=== PATIENT | male | born 1945 | race Caucasian/White ===

== ENCOUNTER 2017-02-10 12:46 | Outpatient (CLI) | payer MEDICARE ==
--- NOTE | 2017-02-10 18:15 | RAD ---
TWO VIEW CHEST: History: Dyspnea. FINDINGS: There is blunting of both CP angles and posterior gutters consistent with small bilateral effusions. Lungs otherwise appear clear and well aerated. Heart size is within normal range. Post op sternotomy changes noted. Vascular markings are within normal range. IMPRESSION: Evidence of small bilateral effusions. POS: [facility]
== END 2017-02-10 12:47 | disposition home or self-care (01) ==
LOC: RAD 12:46
PROVIDERS: ATTEND Internal Medicine
DX: R06.00 Dyspnea, unspecified (principal); J90 Pleural effusion, not elsewhere classified
CPT/HCPCS: 71020

== ENCOUNTER 2017-08-15 14:34 | Outpatient (CLI) | payer MEDICARE ==
--- NOTE | 2017-08-15 16:18 | MRI ---
MRI THORACIC SPINE PERFORMED WITHOUT CONTRAST ENHANCEMENT: Date: 08/15/17 HISTORY: Back pain with pain between shoulder blades x2 months, radicular-type symptoms. FINDINGS: The vertebral bodies are normal in height. There is no evidence for any acute marrow edema change sug gesting any type of a compression injury. Disc spaces are also relatively well preserved. There is fa irly minimal arthritic change seen. Review of the disc levels show minimal disc bulges, but no signs of disc herniation. There is no cent ral canal stenosis and the cord signal change is normal. No paravertebral abnormalities noted. T2 hyperintense lesion involving the upper pole of the right ki dney is most likely a cyst and is only partially visualized. IMPRESSION: Essentially unremarkable MRI of the thoracic spine. POS: [facility]
== END 2017-08-15 14:35 | disposition home or self-care (01) ==
LOC: TBSIIMAG 14:34
PROVIDERS: ATTEND Specialist
DX: M54.14 Radiculopathy, thoracic region (principal)
CPT/HCPCS: 72146

== ENCOUNTER 2017-09-15 10:03 | Outpatient (CLI) | payer MEDICARE ==
--- NOTE | 2017-09-15 11:25 | RAD ---
LUMBAR SPINE THREE VIEWS: Technique: Lateral views were obtained in neutral flexion and extension positions. Indications: Spondylosis. Back pain. FINDINGS: Lumbar vertebrae maintain height. Slight retrolisthesis seen at L1-2 and L2-3. Mild anterolisthesis a t L5-S1. Loss of disc space throughout but most prominent at L1-2, L2-3, and L5-S1 levels. Mild to mo derate degenerative spurring. Prominent facet hypertrophy. No significant change in alignment with flexion or extension. Aortic stent graft is noted. IMPRESSION: Grade I anterolisthesis at L5-S1 and slight posterior listhesis at 1- and L2-3. Degenerative changes as described. POS: [facility]
== END 2017-09-15 10:04 | disposition home or self-care (01) ==
LOC: RAD 10:03
PROVIDERS: ATTEND Nurse Practitioner Family
DX: M47.816 Spondylosis without myelopathy or radiculopathy, lumbar region (principal); M43.17 Spondylolisthesis, lumbosacral region
CPT/HCPCS: 72100

== ENCOUNTER 2017-09-24 10:06 | Outpatient (CLI) | payer MEDICARE ==
--- NOTE | 2017-09-24 11:53 | RAD ---
LUMBAR SPINE FOUR VIEWS INCLUDING STANDING AND FLEXION WITH EXTENSION LATERAL VIEWS: HISTORY: A 72-year-old male with spondylosis in the lumbar region. COMPARISON: 09/15/2017 FINDINGS: Aortobiiliac Endo stent is in place. Generalized disk osteophytosis and facet arthrosis. No evidenc e for abnormal translation between flexion and extension. No acute fracture. IMPRESSION: Lumbar spondylosis. No abnormal translation between flexion and extension. Stable from prior study. POS: [facility]
== END 2017-09-24 10:07 | disposition home or self-care (01) ==
LOC: RAD 10:06
PROVIDERS: ATTEND Specialist
DX: M47.816 Spondylosis without myelopathy or radiculopathy, lumbar region (principal)
CPT/HCPCS: 72120

== ENCOUNTER 2017-10-03 15:20 | Outpatient (CLI) | payer MEDICARE | END 2017-10-03 15:21 | disposition home or self-care (01) | LOC: BICMRI 15:20 | PROVIDERS: ATTEND Family Medicine | DX: H53.2 Diplopia (principal); I63.9 Cerebral infarction, unspecified | CPT/HCPCS: 70551 ==

== ENCOUNTER 2019-01-14 13:27 | Outpatient (CLI) | payer MEDICARE ==
--- NOTE | 2019-01-14 14:46 | CT ---
CT CHEST NONCONTRAST: HISTORY: Lung nodule. Followup. COMPARISON: Images from a prior outside CT exam 08/11/2018 are included. Report not available. FINDINGS: Lungs are hyperinflated. Postoperative changes at the superior aspect of the right major fissure wit h radiopaque suture row extending to the right hilum. Scattered areas of parenchymal scarring. Mild bibasilar atelectasis. Centered within the posterior aspect of the left upper lobe is a lobular multinodular focus with subt le surrounding spiculation. Its greater diameter, 0.9 cm, is an AP depth, unchanged from the prior e xam. No new masses are apparent. No pleural fluid or pneumothorax. Airways are patent. Lack of contrast limits evaluation of the soft tissues. Postoperative changes mediastinum. Calcific ation within the arterial structures. No enlarged mediastinal lymph nodes are apparent. Tiny low-de nsity lesion of the right adrenal gland is stable. IMPRESSION: 1. Postoperative changes of the right lung. The very small soft tissue ground-glass nodule at the p osterior aspect of the left upper lobe is stable. No new abnormalities. 2. Atherosclerosis. 3. Chronic-type findings are stable. POS: [facility]
== END 2019-01-14 13:28 | disposition home or self-care (01) ==
LOC: BICCT 13:27
PROVIDERS: ATTEND Internal Medicine
DX: R91.8 Other nonspecific abnormal finding of lung field (principal); I70.90 Unspecified atherosclerosis; Z98.890 Other specified postprocedural states; E27.8 Other specified disorders of adrenal gland
CPT/HCPCS: 71250

== ENCOUNTER 2019-03-29 12:17 | Outpatient (CLI) | payer MEDICARE ==
--- NOTE | 2019-03-29 15:17 | RAD ---
RADIOGRAPH RIGHT HIP 2 VIEWS: Date: 03/29/2019 HISTORY: 74-year-old male with persistent posttraumatic right hip pain after fall 2 days ago. FINDINGS: Femoral head contour is maintained. No fracture is identified. No dislocation. Hip joint space is estrada ntained. No subcapital osteophytes. IMPRESSION: 1. Negative. 2. If symptoms do not improve by next week, a noncontrast MRI of the pelvis and hip would be the mos t sensitive modality for the detection of occult acute hip fractures. POS: [facility]
== END 2019-03-29 12:18 | disposition home or self-care (01) ==
LOC: BICRAD 12:17
PROVIDERS: ATTEND Nurse Practitioner Family
DX: M25.551 Pain in right hip (principal)

== ENCOUNTER 2019-04-27 14:10 | Outpatient (CLI) | payer MEDICARE, OTHER ==
[2019-04-27] MEDS ORDERED: Magnevist 469MG/ML 20 ML VIAL ONE (14:22)
--- NOTE | 2019-04-27 15:38 | MRI ---
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 Short-term memory loss, past few months. COMPARISON: None. FINDINGS: Gradient echo sequence: No hemorrhage. Calvarium: Appropriate T1 marrow signal intensity. Midline brain parenchyma: Unremarkable. Cerebrum:Stable malacic and gliotic changes involving the medial right frontal lobe. Associated T2 an d FLAIR white matter hyperintensities. No parenchymal mass, mass effect or midline shift. Brain volume, age-appropriate. With the exception of the medial right frontal lobe, cortical alfaro-white mat ter differentiation is preserved. There are T2 and FLAIR white matter hyperintensities involving the anterior right webster radiata, right centrum semiovale due to a combination of gliosis and chroni c small vessel ischemic changes. Small cavitary lacunar infarct in the right centrum semiovale is noted. Ventricles: No evidence of hydrocephalus. Sinuses and mastoid air cells: Adequate aeration. Diffusion: Central arterial flow is maintained. Absent restricted diffusion. Postcontrast images: No pathologic enhancement of the brain parenchyma. IMPRESSION: 1. Malacic and gliotic changes involving the right frontal white matter and right frontal lobe due re mote insult. 2. Absent restricted diffusion. No acute infarct. 3. No pathologic enhancement of the brain parenchyma. 4. Age-appropriate atrophy. Transcribed Date/Time: 04/27/2019 3:42 PM
== END 2019-04-27 14:11 | disposition home or self-care (01) ==
LOC: BICMRI 14:10
PROVIDERS: ATTEND Psychiatry & Neurology Neurology
DX: I66.01 Occlusion and stenosis of right middle cerebral artery (principal); G93.89 Other specified disorders of brain
CPT/HCPCS: 70553; 82565; A9579

== ENCOUNTER 2019-06-19 17:00 | Inpatient (IN) | payer MEDICARE ==
[~2019-06-19 17:00] MED LIST: Iopamidol 370 76% 50 ML VIAL FS ONE
[2019-06-19 17:53] LABS: #Basophils 0.1 thou/uL (0.0-0.2); #Eosinphils 0.1 thou/uL (0.0-0.7); #Lymphocytes 2.4 thou/uL (1.20-3.40); #Monocytes 0.9 thou/uL (0.11-0.59); #Neutrophils 13.4 thou/uL (1.40-6.50); %Basophils 0.4 % (0.0-1.0); %Eosinophils 0.6 % (0.0-10.0); %Lymphocytes 14.2 % (21.0-51.0); %Monocytes 5.5 % (0.0-10.0); %Neutrophils 79.3 % (42.0-75.0); Hemoglobin 12.2 g/dL (14.0-18.0); Mean Corpuscular HGB CONC 34.3 g/dL (32.0-36.0); Mean Corpuscular Hemoglobin 31.1 pg (27.0-31.0); Mean Corpuscular Volume 90.8 fL (78.0-98.0); Mean Platelet Volume 9.4 fL (7.4-10.4); Platelet Count 235 thou/uL (130-400); RBC Distribution Width 13.2 % (11.5-14.5); White Blood Cell (WBC) Count 16.9 thou/uL (4.8-10.8)
[2019-06-19] MEDS ORDERED: Pantoprazole 40 MG VIAL ONE (17:54)
[2019-06-19 17:59] LABS: PTT 32.1 SEC (22.9-36.1); Prothrombin Time 13.1 SEC (12.0-14.7)
[2019-06-19] MEDS ORDERED: Pantoprazole 80 MG in Sodium Chloride 0.9% 100 ML IVPB SCH (18:00)
[2019-06-19 18:04] LABS: ALT (SGPT) 11 U/L (8-55); AST (SGOT) 9 U/L (5-34); Alkaline Phosphatase 67 U/L (40-110); Anion Gap 15 mmol/L (10-20); BUN (Urea Nitrogen) 62 mg/dL (8.4-25.7); Bilirubin, Total 0.6 mg/dL (0.2-1.2); Calc. Creatinine Clearance 0 mL/min (70-130); Calcium 9.6 mg/dL (7.8-10.44); Carbon Dioxide 24 mmol/L (23-31); Chloride 105 mmol/L (98-107); Estimated GFR-MDRD 58; Globulin 2.4 g/dL (2.4-3.5); Glucose 92 mg/dL (83-110); Potassium 4.8 mmol/L (3.5-5.1); Protein, Total 6.4 g/dL (5.8-8.1); Sodium 139 mmol/L (136-145)
--- NOTE | 2019-06-19 19:04 | CT ---
CT ABDOMEN AND PELVIS PERFORMED WITH INTRAVENOUS CONTRAST ENHANCEMENT: 06/19/19 HISTORY: Blood in stools. Abdominal pain in left upper quadrant that has resolved. COMPARISON: An 01/22/19 CT angio of the abdomen and pelvis. The lung bases show chronic appearing change. The liver, spleen, pancreas and gallbladder regions appear unremarkable. Right and left adrenal glands and right and left kidneys are normal in size. Hypodensities involving the right kidney are most likely cysts. Some perinephric fat stranding is of similar appearance to th e previous exam. Fairly extensive renal artery calcifications are seen, particularly on the right. Th e infrarenal abdominal aortic aneurysm is again noted. It has been treated with an aortoiliac stent, the appearance is stable as compared to the previous exam. No signs for an endoleak. The maximum AP d imension of the aneurysm is 4.5 cm. There is colonic diverticulosis noted, more pronounced in the sig moid region. No inflammatory process. The appendix appears unremarkable. IMPRESSION: 1. Colonic diverticulosis. 2. Stable appearance to aortic aneurysm and aortoiliac stent. 3. Hypodensities involving the kidney are most compatible with a cyst. Also a small adenoma of t he right adrenal gland is stable. POS: [facility]
[2019-06-19] MEDS ORDERED: Lorazepam 2 MG/ML VIAL SLOW IVP PRN (19:56)
[2019-06-19] MEDS ORDERED: Sodium Chloride 0.9% 1,000 ML IV SCH (20:00)
[2019-06-19] MEDS ORDERED: Dextrose 5 %-0.45 % NaCl 1,000 ML IV SCH (20:00)
--- NOTE | 2019-06-19 20:11 | HP ---
CHIEF COMPLAINT: Black stools. HISTORY OF PRESENT ILLNESS: Mr. Madrid is a 74-year-old male with past medical history of coronary artery disease, multiple TIAs, cardiac stents, CABG, lung cancer, presented to the emergency room with chief complaint of melena. He is normally constipated, and this morning began having dark black stool and had 4 bowel movements a day, after that he started feeling weak and lightheaded, especially with standing. The patient denies any history of GI bleeding. He had some left upper quadrant abdominal pain. The patient is on Plavix and aspirin. He denies being on any anticoagulants. PAST MEDICAL HISTORY: As mentioned above in history of present illness. PAST SURGICAL HISTORY: 1. CABG. 2. Cardiac stents. PAST PSYCHIATRIC HISTORY: PTSD. SOCIAL HISTORY: The patient currently uses tobacco. Denies drug use. Denies alcohol use. FAMILY HISTORY: Reviewed and noncontributory. HOME MEDICATIONS: Please see home medication reconciliation form for updated medications. ALLERGIES: NO KNOWN ALLERGIES. REVIEW OF SYSTEMS: Review of 14 systems is negative except what is mentioned in the history of present illness. PHYSICAL EXAMINATION: GENERAL: The patient is awake, alert, and oriented, not in acute distress. VITAL SIGNS: Blood pressure 124/69, pulse is 79, respiratory rate is 16, temperature is 99.6, and oxygen saturation 99% on room air. HEAD AND NECK: Normocephalic and atraumatic. Neck is supple. No JVD. CHEST: Fair bilateral air entry. HEART: S1 and S2. Regular. ABDOMEN: Soft with mild left upper quadrant tenderness. Bowel sounds present. NEUROLOGIC: Awake, alert, and oriented x3. PSYCHIATRIC: Unable to assess. EXTREMITIES: No clubbing. No cyanosis. GENITOURINARY: No suprapubic tenderness. No flank tenderness. LABORATORY DATA: Hemoglobin is 12.2, platelets 235, and WBC count is 16.9. BUN is 62 and creatinine 1.2. ASSESSMENT: 1. Acute gastrointestinal bleeding, upper. 2. Coronary artery disease with history of coronary artery bypass graft surgery and cardiac stents, on Plavix and aspirin. 3. Cigarette smoker. 4. Posttraumatic stress disorder. PLAN: 1. Admit. 2. Monitor hemoglobin and hematocrit. 3. Continue IV proton pump inhibitor drip. 4. Hold aspirin and Plavix. 5. Consult GI for evaluation and further management. 6. The patient has elevated WBC count, but no obvious signs of infection, probably reactive. We will reassess in a.m. 7. DVT prophylaxis as appropriate. 8. Expected length of stay, 2 midnights or more. Job ID: [id number]
[2019-06-19 22:16] LABS: Hemoglobin 10.7 g/dL (14.0-18.0)
[2019-06-19 23:27] VITALS: BMI 33.2
[2019-06-20 06:48] LABS: #Eosinphils 0.1 thou/uL (0.0-0.7); #Monocytes 0.8 thou/uL (0.11-0.59); #Neutrophils 9.2 thou/uL (1.40-6.50); %Basophils 0.2 % (0.0-1.0); %Eosinophils 0.9 % (0.0-10.0); %Lymphocytes 22.6 % (21.0-51.0); %Monocytes 5.9 % (0.0-10.0); %Neutrophils 70.4 % (42.0-75.0); Hemoglobin 8.9 g/dL (14.0-18.0); Mean Corpuscular HGB CONC 34.2 g/dL (32.0-36.0); Mean Corpuscular Volume 90.5 fL (78.0-98.0); Mean Platelet Volume 8.8 fL (7.4-10.4); Platelet Count 187 thou/uL (130-400); RBC Distribution Width 13.3 % (11.5-14.5); Red Blood Cell (RBC) Count 2.88 mill/uL (4.70-6.10); White Blood Cell (WBC) Count 13.1 thou/uL (4.8-10.8)
[2019-06-20 07:05] LABS: ALT (SGPT) 9 U/L (8-55); AST (SGOT) 9 U/L (5-34); Albumin 3.6 g/dL (3.4-4.8); Alkaline Phosphatase 48 U/L (40-110); Anion Gap 10 mmol/L (10-20); BUN (Urea Nitrogen) 58 mg/dL (8.4-25.7); Bilirubin, Total 0.6 mg/dL (0.2-1.2); Calc. Creatinine Clearance 72 mL/min (70-130); Calcium 8.8 mg/dL (7.8-10.44); Carbon Dioxide 22 mmol/L (23-31); Chloride 110 mmol/L (98-107); Estimated GFR-MDRD 58; Glucose 85 mg/dL (83-110); Potassium 4.3 mmol/L (3.5-5.1); Protein, Total 5.6 g/dL (5.8-8.1); Sodium 138 mmol/L (136-145)
[2019-06-20 07:32] VITALS: BP 112/57; TEMP 98.1
--- NOTE | 2019-06-20 15:21 | CON ---
DATE OF CONSULTATION: I was asked to see Mr. Madrid with regard to melena. He had apparently started having black stools yesterday. He was off aspirin and Plavix for severe peripheral vascular disease and previous stenting. He noted drop in hemoglobin from his baseline from 14.9 in December of last year to 12.4 on admission down to 8.9 this morning. He had been started on Protonix and he was on schedule for an EGD today from when Dr. Tabares called me last night. The nurses informed me he has left AMA. If he decides to return, we will evaluate him at that time. Job ID: [id number]
--- NOTE | 2019-06-23 13:56 | EKG ---
Test Reason : Blood Pressure : / mmHG Vent. Rate : 087 BPM Atrial Rate : 087 BPM P-R Int : 134 ms QRS Dur : 090 ms QT Int : 362 ms P-R-T Axes : 045 043 068 degrees QTc Int : 435 ms Normal sinus rhythm Normal ECG Confirmed by CORTEZ CUNNINGHAM DO ([id number]), graphic editor KT ATKINS ([id number]) on 06/23/2019 1:55:39 PM Referred By: Confirmed By:CORTEZ CUNNINGHAM DO
== END 2019-06-20 10:20 | disposition left against medical advice (07) | DRG 379 ==
LOC: ERS 17:00 → 2NO 19:38
PROVIDERS: ADMIT Internal Medicine; ATTEND Internal Medicine
DX: K92.2 Gastrointestinal hemorrhage, unspecified (principal); K59.00 Constipation, unspecified; F17.210 Nicotine dependence, cigarettes, uncomplicated; F43.10 Post-traumatic stress disorder, unspecified; I73.9 Peripheral vascular disease, unspecified; I25.10 Atherosclerotic heart disease of native coronary artery without angina pectoris; Z95.1 Presence of aortocoronary bypass graft; Z95.5 Presence of coronary angioplasty implant and graft; Z86.73 Personal history of transient ischemic attack (TIA), and cerebral infarction without residual deficits; Z85.118 Personal history of other malignant neoplasm of bronchus and lung
CPT/HCPCS: 36415; 74177; 80053; 82274; 85025; 85610; 85730; 86850; 86870; 86900; 86901; 93005; 96365; 96366; 96376; C9113; J2060; J3490; Q9967

== ENCOUNTER 2019-07-02 05:58 | Day surgery (SDC) | payer MEDICARE ==
[2019-07-02 07:13] LABS: Platelet Count 335 thou/uL (130-400)
[2019-07-02] MEDS ORDERED: Ketamine 50 MG/ML (10ML VIAL) ONE (07:22)
--- NOTE | 2019-07-02 09:42 | OP ---
DATE OF PROCEDURE: 07/02/2019 PREPROCEDURE DIAGNOSES: 1. Gastrointestinal bleed on 06/18 with melena and drop in hemoglobin from normal to around 8. The patient left the hospital against medical advice at that time. 2. Hemoglobin now 10. The patient is off his Plavix. POSTPROCEDURE DIAGNOSES: 1. Ulcer, pyloric channel, white based, likely source of bleeding, biopsied. 2. Hiatal hernia, 3 cm, with a small [place] erosion. No signs of bleeding. 3. Colonoscopy notable for 3 flat polyps in the ascending and transverse colon, removed by cold snare polypectomy, largest was 10 mm in size. 4. Diverticulosis coli with no stigmata of recent bleeding. RECOMMENDATIONS: 1. Hold Plavix for another 5 days and then restart. 2. Discontinue Naprosyn. 3. Continue omeprazole 40 mg daily for 8 weeks. 4. Follow up in the office in 1 month. 5. Start iron FeSO4 325 mg p.o. daily. 6. Repeat colonoscopy in 3 years. ANESTHESIA: TIVA. PROCEDURE IN DETAIL: After the patient was informed of the risks, benefits, and possible complications of endoscopy including perforation, bleeding, reaction to medication, and aspiration, informed consent was obtained. The patient was brought to the endoscopy suite where he was sedated in gradual fashion. When he was comfortable, a bite block was placed inside the orifice. The endoscope was advanced to the esophagus, stomach, and second and third portions of the duodenum. The esophagus was normal with a 3-cm hiatal hernia, small [place] erosion noted at the hiatal hernia waist. This was not bleeding. No others were seen. Retroflexed view showed normal anatomy there. In the pylorus, there was edema, and with close evaluation, there was found to be a 5-mm ulcer in the 3 o'clock position of the pyloric channel. This was biopsied with white base. No stigmata of bleeding and appeared benign, but biopsies were also taken for H. pylori on retroflexed views. The stomach was fully distended and otherwise was normal. The duodenum was normal to the third portion including the ampulla. The scope was removed. The patient was turned to the room, and a rectal examination was performed. The endoscope was advanced from the anal canal through the colon to the cecum, identified by ileocecal valve and appendiceal orifice where photo documentation was obtained. A flat polyp was noted just distal to the cecum and removed by cold snare polypectomy and submitted to Pathology. Two others noted in the transverse colon. These were also flat with mucous cap and removed by cold snare polypectomy. Diverticulosis coli was noted throughout the colon. The full colon was evaluated one more time with regard to these polyps, no others were seen. Retroflexed views in the rectum were normal. The scope was removed, and the patient tolerated the procedure well, no complications. Job ID: [id number]
[2019-07-02] MEDS ORDERED: EPHEDRINE 25 MG/5 ML SYRINGE ONE (13:38)
[2019-07-02] MEDS ORDERED: PROPOFOL 200 MG/20 ML VIAL ONE (13:38)
== END 2019-07-02 09:42 | disposition home or self-care (01) ==
LOC: SDC 05:58
PROVIDERS: ATTEND Internal Medicine Gastroenterology
PROC: 0DB78ZX Excision of Stomach, Pylorus, Via Natural or Artificial Opening Endoscopic, Diagnostic (ICD-10-PCS; principal; 2019-07-02)
PROC: 0DBK8ZX Excision of Ascending Colon, Via Natural or Artificial Opening Endoscopic, Diagnostic (ICD-10-PCS; 2019-07-02)
PROC: 0DBL8ZX Excision of Transverse Colon, Via Natural or Artificial Opening Endoscopic, Diagnostic (ICD-10-PCS; 2019-07-02)
DX: D12.2 Benign neoplasm of ascending colon (principal); D12.3 Benign neoplasm of transverse colon; K57.31 Diverticulosis of large intestine without perforation or abscess with bleeding; K25.4 Chronic or unspecified gastric ulcer with hemorrhage; K31.89 Other diseases of stomach and duodenum; D50.0 Iron deficiency anemia secondary to blood loss (chronic); K44.9 Diaphragmatic hernia without obstruction or gangrene; J44.9 Chronic obstructive pulmonary disease, unspecified; I25.10 Atherosclerotic heart disease of native coronary artery without angina pectoris; F43.10 Post-traumatic stress disorder, unspecified; F17.200 Nicotine dependence, unspecified, uncomplicated; Z86.73 Personal history of transient ischemic attack (TIA), and cerebral infarction without residual deficits; Z79.02 Long term (current) use of antithrombotics/antiplatelets; Z79.82 Long term (current) use of aspirin; Z79.899 Other long term (current) drug therapy; Z95.1 Presence of aortocoronary bypass graft; Z95.5 Presence of coronary angioplasty implant and graft; Z90.2 Acquired absence of lung [part of]
CPT/HCPCS: 36415; 85014; 85018; 85049; 88305; 88312; J2704

== ENCOUNTER 2019-07-20 09:15 | Outpatient (CLI) | payer MEDICARE ==
--- NOTE | 2019-07-20 10:31 | CT ---
CHEST CT WITHOUT CONTRAST: COMPARISON: 01/14/2019, 08/11/2018, 02/10/2018. HISTORY: Follow-up pulmonary nodule FINDINGS: Limited evaluation of the mediastinum by the lack of IV contrast. Stable nonenlarged mediastinal lymp h nodes. Heart size is within normal limits. No pericardial effusion. Stable atherosclerosis of a nonaneurysmal aorta. Coronary artery calcifications are identified. Upper abdomen: No acute solid organ abnormality. Osseous structures: Stable sternotomy changes. There are no lytic or blastic lesions within the osseo us structures. Trachea and central bronchi: Patent. Soft tissue density along the right aspect of the trachea measur es 0.8 x 0.8 cm. This density is not appreciated on the previous examinations. Pleural spaces: No significant pleural fluid. Pneumothorax: None. Lungs: Chronic changes in the lung parenchyma are identified. Stable emphysematous change. Stable pos toperative changes in the right perihilar region. Partial resection of the right upper lobe. Nodules: Right lung: No suspicious masses or nodules in the right lung. Left lung: Redemonstration of a stable groundglass nodule in the left upper lobe. Nodule measures 0.9 x 0.6 cm. Stable slight irregular margination and irregular linear densities peripheral to the aforementioned groundglass nodule. No new nodules are noted in the left lung. IMPRESSION: 1. Stable chronic lung parenchymal changes. 2. Stable postoperative changes. 3. Stable groundglass nodule in the left upper lobe. Nodule has not changed since January 2018. 4. Abnormal hypodensity along the right aspect of the trachea, incompletely evaluated. Direct visuali zation with bronchoscopy. Code T Transcribed Date/Time: 07/20/2019 10:44 AM
== END 2019-07-20 09:16 | disposition home or self-care (01) ==
LOC: BICCT 09:15
PROVIDERS: ATTEND Internal Medicine
DX: R91.1 Solitary pulmonary nodule (principal); Z98.890 Other specified postprocedural states; J39.8 Other specified diseases of upper respiratory tract
CPT/HCPCS: 36415; 71250; 85014; 85018

== ENCOUNTER 2019-11-16 10:03 | Outpatient (CLI) | payer MEDICARE ==
--- NOTE | 2019-11-16 11:08 | CT ---
CT CHEST WITHOUT CONTRAST CLINICAL INDICATION: Follow-up pulmonary nodule. History of lung cancer post surgery. History of left lower lobectomy. Pat ient complains of ongoing chest congestion. COMPARISON: 07/20/2019 and 01/14/2019 as well as study on 02/10/2018 FINDINGS: Aorta: Normal in caliber. Dense vascular calcifications are seen in the thoracic aorta as well as inv olving the coronary arteries. Lungs: There are scattered peripherally located linear interstitial densities related to mild chronic lung changes similar to prior studies. Postoperative changes related to left lower lobectomy are present with postsurgical changes left hilar region and linear areas of scarring present. The spiculated nodule with adjacent linear and groundglass densities within the posterior aspect left upper lobe is again seen. This nodule measures 9 mm x 7 mm which is overall similar in size compared to studies in 2019 and 2018; however, this nodule does measure larger in size compared to [facility] in 2018 where measurements of 7 mm x 7 mm are obtained. The adjacent linear densities as well as slight groundglass density is increased as well from study in 2018. No additional discrete pulmona ry nodule or mass is seen in the lungs bilaterally. Mediastinum: Lack of intravenous contrast does limit evaluation of the mediastinal structures, but no enlarged lymph nodes are seen by CT size criteria. Previously seen nodular density along the right posterolateral aspect of the trachea is no longer visualized and may been related to secretions on th e prior exam. No additional nodules or filling defects are seen within the trachea or visualized bronchi. Postoperative changes related to CABG are again seen. Thyroid gland: Grossly normal nonenhanced CT appearance. Osseous structures: Degenerative changes are seen in the spine. No suspicious lytic or sclerotic osse ous lesions are identified. Right glenohumeral osteoarthropathy is present with subchondral cystic changes noted. Chest wall: No abnormality visualized. Upper abdomen: Right adrenal nodule demonstrating attenuation coefficient compatible with an adrenal adenoma is again seen and stable in size. There is also a stable difficult to characterize exophytic hypodense lesion superior pole right kidney statistically likely related to a renal cyst. E vidence of colonic diverticulosis. IMPRESSION: 1. Slightly spiculated pulmonary nodule left upper lobe with adjacent irregular linear densities. Thi s demonstrates overall similar appearance and size compared to prior studies in 2019 and 2018 but is slightly larger in size compared to study in 2018. No new pulmonary nodule is seen. 2. Stable chronic lung changes as well as postoperative changes left hemithorax.
== END 2019-11-16 10:04 | disposition home or self-care (01) ==
LOC: BICCT 10:03
PROVIDERS: ATTEND Internal Medicine Critical Care Medicine
DX: R91.1 Solitary pulmonary nodule (principal); J98.4 Other disorders of lung; Z98.890 Other specified postprocedural states
CPT/HCPCS: 71250

== ENCOUNTER 2020-06-14 13:35 | Outpatient (CLI) | payer MEDICARE | END 2020-06-14 13:36 | disposition home or self-care (01) | LOC: BICCT 13:35 | PROVIDERS: ATTEND Internal Medicine Critical Care Medicine | DX: R91.1 Solitary pulmonary nodule (principal); E27.8 Other specified disorders of adrenal gland | CPT/HCPCS: 71250 ==

== ENCOUNTER 2020-08-08 10:04 | Outpatient (CLI) | payer MEDICARE | END 2020-08-08 10:05 | disposition home or self-care (01) | LOC: BICULT 10:04 | PROVIDERS: ATTEND Family Medicine | DX: R10.30 Lower abdominal pain, unspecified (principal); K76.0 Fatty (change of) liver, not elsewhere classified; R16.2 Hepatomegaly with splenomegaly, not elsewhere classified; I71.4 Abdominal aortic aneurysm, without rupture; N28.1 Cyst of kidney, acquired | CPT/HCPCS: 93975 ==

== ENCOUNTER 2021-06-15 12:10 | Outpatient (CLI) | payer MEDICARE | END 2021-06-15 12:11 | disposition home or self-care (01) | LOC: CT 12:10 | PROVIDERS: ATTEND Internal Medicine Critical Care Medicine | DX: R91.1 Solitary pulmonary nodule (principal) | CPT/HCPCS: 71250 ==

== ENCOUNTER 2021-08-07 09:13 | Outpatient (CLI) | payer MEDICARE | END 2021-08-07 09:14 | disposition home or self-care (01) | LOC: MRI 09:13 | PROVIDERS: ATTEND Family Medicine | DX: M54.41 Lumbago with sciatica, right side (principal); M48.061 Spinal stenosis, lumbar region without neurogenic claudication; I71.4 Abdominal aortic aneurysm, without rupture; M48.07 Spinal stenosis, lumbosacral region; M51.36 Other intervertebral disc degeneration, lumbar region; M47.816 Spondylosis without myelopathy or radiculopathy, lumbar region | CPT/HCPCS: 72148 ==

== ENCOUNTER 2021-12-14 14:16 | Outpatient (CLI) | payer MEDICARE ==
[2021-12-14 17:55] LABS: Hemoglobin 14.1 g/dL (13.5-17.5); Mean Corpuscular HGB CONC 33.7 g/dL (32.0-36.0); Mean Corpuscular Hemoglobin 31.3 pg (27.0-33.0); Mean Corpuscular Volume 92.9 fl (81.2-95.1); Platelet Count 254 10x3/uL (150-450); RBC Distribution Width 14.3 % (11.5-14.5); White Blood Cell (WBC) Count 8.1 10x3/uL (3.5-10.5)
[2021-12-14 18:05] LABS: Anion Gap 14 mmol/L (10-20); BUN (Urea Nitrogen) 12 mg/dL (8.4-25.7); Calc. Creatinine Clearance 0 mL/min (70-130); Calcium 9.5 mg/dL (7.8-10.44); Carbon Dioxide 29 mmol/L (23-31); Chloride 100 mmol/L (98-107); Estimated GFR 57; Glucose 101 mg/dL (83-110); Potassium 4.7 mmol/L (3.5-5.1); Sodium 138 mmol/L (136-145)
== END 2021-12-14 14:17 | disposition home or self-care (01) ==
LOC: LABBT 14:16
PROVIDERS: ATTEND Neurological Surgery
DX: Z01.812 Encounter for preprocedural laboratory examination (principal); M54.16 Radiculopathy, lumbar region; Z20.822 Contact with and (suspected) exposure to COVID-19
CPT/HCPCS: 80048; 85027; 87811

== ENCOUNTER 2021-12-19 07:32 | Day surgery (SDC) | payer MEDICARE ==
[2021-12-17 13:35] VITALS: BMI 29.9
[2021-12-19] MEDS ORDERED: Bupivacaine/Epinephrine 0.25% 30 ML VIAL ONE (08:23)
[2021-12-19] MEDS ORDERED: Thrombin 5000 UNITS/5 ML VIAL ONE (08:23)
[2021-12-19] MEDS ORDERED: SUGAMMADEX SODIUM 200 MG/2 ML VIAL ONE (08:34)
[2021-12-19] MEDS ORDERED: fentaNYL Citrate/PF 100 MCG/2 ML SYRINGE ONE (08:34)
[2021-12-19] MEDS ORDERED: CEFAZOLIN 2 GM VIAL ONE ×2 (08:36→13:12)
[2021-12-19] MEDS ORDERED: Sodium Chloride 0.9% 100 ML ONE ×2 (08:36→13:12)
[2021-12-19] MEDS ORDERED: Albuterol Sulfate HFA (OR ONLY) ONE (08:48)
[2021-12-19] MEDS ORDERED: PROPOFOL 200 MG/20 ML VIAL ONE (08:48)
[2021-12-19] MEDS ORDERED: Rocuronium Bromide 10 MG/ML (10ML VIAL) ONE (08:48)
[2021-12-19] MEDS ORDERED: Lidocaine 1% MPF 2 ML VIAL ONE (08:48)
[2021-12-19] MEDS ORDERED: Ketorolac Tromethamine 30 MG/ML VIAL ONE (08:48)
[2021-12-19] MEDS ORDERED: Ondansetron PF 4 MG/2 ML Vial ONE (08:48)
[2021-12-19] MEDS ORDERED: Fentanyl 100 MCG/2 ML VIAL ONE ×3 (10:14→10:53)
[2021-12-19] MEDS ORDERED: Tamsulosin HCl 0.4 MG CAP ONE (10:48)
[2021-12-19] MEDS ORDERED: HYDROcodone/Acetaminophen 5/325 mg Tablet ONE (12:22)
== END 2021-12-19 15:00 | disposition home or self-care (01) ==
LOC: SDC 07:32
PROVIDERS: ATTEND Neurological Surgery
PROC: 01NB0ZZ Release Lumbar Nerve, Open Approach (ICD-10-PCS; principal; 2021-12-19)
DX: M54.16 Radiculopathy, lumbar region (principal); Z79.02 Long term (current) use of antithrombotics/antiplatelets; Z79.82 Long term (current) use of aspirin; Z79.899 Other long term (current) drug therapy; Z95.1 Presence of aortocoronary bypass graft; Z95.5 Presence of coronary angioplasty implant and graft
CPT/HCPCS: 76000; J0690; J1885; J2405; J2704; J3010; J3490

== ENCOUNTER 2022-02-14 14:25 | Outpatient (CLI) | payer MEDICARE | END 2022-02-14 14:26 | disposition home or self-care (01) | LOC: ULT 14:25 | PROVIDERS: ATTEND Family Medicine | DX: I73.9 Peripheral vascular disease, unspecified (principal); I25.10 Atherosclerotic heart disease of native coronary artery without angina pectoris; R29.898 Other symptoms and signs involving the musculoskeletal system | CPT/HCPCS: 93923 ==

== ENCOUNTER 2022-02-28 08:34 | Outpatient (CLI) | payer MEDICARE ==
[2022-02-28] MEDS ORDERED: Magnevist 469MG/ML 20 ML VIAL ONE (15:28)
== END 2022-02-28 08:35 | disposition home or self-care (01) ==
LOC: TBSIIMAG 08:34
PROVIDERS: ATTEND Neurological Surgery
DX: M54.16 Radiculopathy, lumbar region (principal)
CPT/HCPCS: 72158; 82565; A9579

== ENCOUNTER 2022-03-26 07:36 | Inpatient (IN) | payer MEDICARE ==
[2022-03-25 15:16] LABS: Hemoglobin 12.9 g/dL (13.5-17.5); Mean Corpuscular HGB CONC 34.1 g/dL (32.0-36.0); Mean Corpuscular Hemoglobin 32.1 pg (27.0-33.0); Mean Platelet Volume 10.6 fl (7.4-10.4); Platelet Count 260 10x3/uL (150-450); RBC Distribution Width 14.6 % (11.5-14.5); Red Blood Cell (RBC) Count 4.02 10x6/uL (4.32-5.72); White Blood Cell (WBC) Count 11.6 10x3/uL (3.5-10.5)
[2022-03-25 15:29] LABS: Anion Gap 14 mmol/L (10-20); BUN (Urea Nitrogen) 12 mg/dL (8.4-25.7); Calc. Creatinine Clearance 0 mL/min (70-130); Calcium 9.6 mg/dL (7.8-10.44); Carbon Dioxide 28 mmol/L (23-31); Chloride 102 mmol/L (98-107); Estimated GFR 83; Glucose 101 mg/dL (83-110); Potassium 4.5 mmol/L (3.5-5.1); Sodium 139 mmol/L (136-145)
[2022-03-26] MEDS ORDERED: Lidocaine 1% MPF 2 ML VIAL ONE (08:19)
[2022-03-26] MEDS ORDERED: Heparin 5,000 UNITS/ML VIAL ONE (08:26)
[2022-03-26] MEDS ORDERED: Protamine Sulfate 50 MG/5 ML VIAL ONE (08:26)
[2022-03-26 08:30] LABS: SARS-CoV-2 NAA Rapid Test Not Detected (NotDetected)
[2022-03-26] MEDS ORDERED: Midazolam HCl 2 mg/2 ml Vial ONE (09:13)
[2022-03-26] MEDS ORDERED: Fentanyl 250 MCG/5 ML VIAL ONE ×2 (09:13→13:53)
[2022-03-26] MEDS ORDERED: Heparin 10,000 UNITS/1 ML VIAL 30,000 UNITS in Sodium Chloride 0.9% 1,000 ML FS SCH (09:30)
[2022-03-26] MEDS ORDERED: CEFAZOLIN 2 GM VIAL ONE ×2 (09:42→16:51)
[2022-03-26] MEDS ORDERED: Sodium Chloride 0.9% 100 ML ONE ×2 (09:42→16:52)
[2022-03-26] MEDS ORDERED: Sodium Bicarb 50 MEQ/50 ML VIAL ONE (10:00)
[2022-03-26] MEDS ORDERED: Rocuronium Bromide 10 MG/ML (10ML VIAL) ONE (10:00)
[2022-03-26] MEDS ORDERED: DOPamine 400 MG/10 ML VIAL ONE (10:00)
[2022-03-26] MEDS ORDERED: Calcium Chloride 1 GM/10 ML Abboject SYRINGE ONE (10:00)
[2022-03-26] MEDS ORDERED: Thrombin 5000 UNITS/5 ML VIAL ONE (10:00)
[2022-03-26] MEDS ORDERED: Protamine Sulfate 250 MG/25 ML VIAL ONE (10:00)
[2022-03-26] MEDS ORDERED: ePHEDrine 50 MG/ML VIAL ONE (10:00)
[2022-03-26] MEDS ORDERED: Nitroglycerin 50 MG/250 ML BOT ONE (10:00)
[2022-03-26] MEDS ORDERED: Albumin 25% 25 GM/100 ML BOT ONE (10:00)
[2022-03-26] MEDS ORDERED: PROPOFOL 200 MG/20 ML VIAL ONE (10:00)
[2022-03-26] MEDS ORDERED: PHENYLEPHRINE-NS 100 MCG/ML 10 ML SYRINGE ONE ×2 (10:00→11:49)
[2022-03-26] MEDS ORDERED: Mannitol 12.5 GM/50 ML ONE (10:39)
[2022-03-26] MEDS ORDERED: Aminocaproic Acid 5 GM/20 ML VIAL ONE (10:39)
[2022-03-26] MEDS ORDERED: Norepinephrine 4 MG/4 ML VIAL ONE (11:49)
[2022-03-26] MEDS ORDERED: Fentanyl 100 MCG/2 ML VIAL ONE (13:20)
[2022-03-26] MEDS ORDERED: SUGAMMADEX SODIUM 200 MG/2 ML VIAL ONE (13:24)
[2022-03-26] MEDS ORDERED: Morphine 2 MG/ML VIAL SLOW IVP PRN (13:51)
[2022-03-26] MEDS ORDERED: Ondansetron PF 4 MG/2 ML Vial IVP PRN (13:51)
[2022-03-26] MEDS ORDERED: Morphine 4 MG/ML VIAL SLOW IVP PRN (13:51)
[2022-03-26] MEDS ORDERED: Fentanyl 100 MCG/2 ML VIAL SLOW IVP PRN ×2 (13:51)
[2022-03-26] MEDS ORDERED: hydrALAZINE 20 MG/ML VIAL SLOW IVP PRN (13:51)
[2022-03-26] MEDS ORDERED: Nitroglycerin 50 MG/250 ML BOT 250 ML IVPB PRN (13:51)
[2022-03-26] MEDS ORDERED: HYDROcodone/Acetaminophen 5/325 mg Tablet PO PRN ×2 (13:51)
[2022-03-26] MEDS ORDERED: Promethazine HCl 25 MG/ML VIAL IM PRN ×2 (13:51→14:11)
[2022-03-26] MEDS ORDERED: Acetaminophen 325 MG TAB PO PRN (13:51)
[2022-03-26] MEDS ORDERED: Ipratropium/Albuterol 3 ML NEB NEB PRN (13:51)
[2022-03-26] MEDS ORDERED: Ondansetron HCl/PF 4 MG/2 ML Vial IVP PRN (14:11)
[2022-03-26] MEDS ORDERED: Naloxone HCl 0.4 mg/ml Vial IV PRN (14:11)
[2022-03-26] MEDS ORDERED: diphenhydrAMINE 25 MG CAP PO PRN (14:11)
[2022-03-26] MEDS ORDERED: diphenhydrAMINE 50 MG/ML VIAL IM PRN (14:11)
[2022-03-26] MEDS ORDERED: diphenhydrAMINE 50 MG/ML VIAL IVP PRN (14:11)
[2022-03-26] MEDS ORDERED: Communication Order-Pharmacy FS SCH (14:15)
[2022-03-26] MEDS ORDERED: Promethazine HCl 25 MG/ML VIAL ONE (14:21)
[2022-03-26 14:35] LABS: #Eosinphils 0.1 thou/uL (0.0-0.7); #Lymphocytes 1.8 thou/uL (1.20-3.40); #Monocytes 0.8 thou/uL (0.11-0.59); #Neutrophils 13.9 thou/uL (1.40-6.50); %Basophils 0.1 % (0.0-1.0); %Eosinophils 0.6 % (0.0-10.0); %Lymphocytes 10.8 % (21.0-51.0); %Neutrophils 83.4 % (42.0-75.0); Hemoglobin 11.4 g/dL (14.0-18.0); Mean Corpuscular HGB CONC 33.4 g/dL (32.0-36.0); Mean Corpuscular Hemoglobin 32.7 pg (27.0-31.0); Mean Corpuscular Volume 98.1 fl (78.0-98.0); Mean Platelet Volume 8.5 fL (7.4-10.4); Platelet Count 193 10x3/uL (130-400); RBC Distribution Width 14.2 % (11.5-14.5); Red Blood Cell (RBC) Count 3.48 mill/uL (4.70-6.10); White Blood Cell (WBC) Count 16.7 10x3/uL (4.8-10.8)
[2022-03-26] MEDS: CEFAZOLIN 2 GM in Sodium Chloride 0.9% 100 ML IVPB SCH (16:59)
[2022-03-26] MEDS: Sodium Chloride 0.9% 1,000 ML IV SCH (16:59)
[2022-03-26] MEDS: Timolol 0.5% Ophth Soln 5 ml Bottle EA EYE SCH (22:12)
[2022-03-27] MEDS: CEFAZOLIN 2 GM in Sodium Chloride 0.9% 100 ML IVPB SCH ×2 (02:16→09:41)
[2022-03-27] MEDS: Sodium Chloride 0.9% 1,000 ML IV SCH ×3 (02:16→21:28)
[2022-03-27 04:39] LABS: #Lymphocytes 1.2 thou/uL (1.20-3.40); #Monocytes 1.2 thou/uL (0.11-0.59); #Neutrophils 11.5 thou/uL (1.40-6.50); %Basophils 0.1 % (0.0-1.0); %Eosinophils 0.3 % (0.0-10.0); %Lymphocytes 8.6 % (21.0-51.0); %Monocytes 8.4 % (0.0-10.0); %Neutrophils 82.6 % (42.0-75.0); Hemoglobin 11.4 g/dL (14.0-18.0); Mean Corpuscular HGB CONC 32.9 g/dL (32.0-36.0); Mean Corpuscular Hemoglobin 32.6 pg (27.0-31.0); Platelet Count 199 10x3/uL (130-400); RBC Distribution Width 14.2 % (11.5-14.5)
[2022-03-27 04:56] LABS: Anion Gap 11 mmol/L (10-20); BUN (Urea Nitrogen) 11 mg/dL (8.4-25.7); Calc. Creatinine Clearance 89 mL/min (70-130); Calcium 8.6 mg/dL (7.8-10.44); Carbon Dioxide 23 mmol/L (23-31); Chloride 111 mmol/L (98-107); Estimated GFR 90; Glucose 112 mg/dL (83-110); Potassium 3.9 mmol/L (3.5-5.1); Sodium 141 mmol/L (136-145)
[2022-03-27] MEDS: Ondansetron PF 4 MG/2 ML Vial IVP PRN ×2 (08:36→23:04)
[2022-03-27 10:15] VITALS: BMI 26.5
[2022-03-27] MEDS ORDERED: Fentanyl CADD 100 ML ONE (18:00)
[2022-03-27] MEDS: FENTANYL 500 MCG/10 ML VIAL 2,000 MCG in Sodium Chloride 0.9% 60 ML IV PRN (18:08)
[2022-03-27] MEDS: Timolol 0.5% Ophth Soln 5 ml Bottle EA EYE SCH (21:55)
[2022-03-28] MEDS: Sodium Chloride 0.9% 1,000 ML IV SCH ×3 (07:32→23:13)
[2022-03-28] MEDS: Metoclopramide HCl 10 MG/2 ML VIAL IVP SCH ×3 (07:32→19:20)
[2022-03-28] MEDS ORDERED: Fluticasone/Salmeterol [Wixela 250-50 Inhub] INH SCH (12:27)
[2022-03-28] MEDS: Fluticasone/Salmeterol [Wixela 250-50 Inhub] INH SCH (19:17)
[2022-03-28] MEDS: Timolol 0.5% Ophth Soln 5 ml Bottle EA EYE SCH (20:12)
[2022-03-29] MEDS: Metoclopramide HCl 10 MG/2 ML VIAL IVP SCH ×3 (01:10→14:59)
[2022-03-29] MEDS ORDERED: Fentanyl CADD 100 ML ONE (01:47)
[2022-03-29] MEDS: FENTANYL 500 MCG/10 ML VIAL 2,000 MCG in Sodium Chloride 0.9% 60 ML IV PRN (01:58)
[2022-03-29] MEDS ORDERED: FLU VACC QS2022-23(65YR UP)/PF 240 MCG/0.7 ML SYRINGE IM ONE (09:00)
[2022-03-29] MEDS: Sodium Chloride 0.9% 1,000 ML IV SCH ×2 (09:01→14:59)
[2022-03-29] MEDS: Fluticasone/Salmeterol [Wixela 250-50 Inhub] INH SCH ×2 (10:28→19:43)
[2022-03-29] MEDS: TIOTROPIUM INH SCH (10:28)
[2022-03-29] MEDS: Timolol 0.5% Ophth Soln 5 ml Bottle EA EYE SCH (20:29)
[2022-03-30] MEDS: Fluticasone/Salmeterol [Wixela 250-50 Inhub] INH SCH ×2 (08:07→18:38)
[2022-03-30] MEDS: TIOTROPIUM INH SCH (08:08)
[2022-03-30] MEDS: Sodium Chloride 0.9% 1,000 ML IV SCH (09:43)
[2022-03-30] MEDS ORDERED: HYDROcodone/Acetaminophen 10/325 mg Tablet PO PRN (15:47)
[2022-03-30] MEDS ORDERED: Polyethylene Glycol 3350 17 GM Packet PO SCH (16:15)
[2022-03-30] MEDS: Carvedilol 3.125 MG TAB PO SCH (17:27)
[2022-03-30] MEDS: HYDROcodone/Acetaminophen 10/325 mg Tablet PO PRN (17:27)
[2022-03-30] MEDS: Timolol 0.5% Ophth Soln 5 ml Bottle EA EYE SCH (20:48)
[2022-03-30] MEDS ORDERED: Aspirin Chewable 81 MG TAB PO SCH (21:00)
[2022-03-30] MEDS ORDERED: traZODone HCl 50 MG TAB PO SCH (21:00)
[2022-03-31] MEDS: Carvedilol 3.125 MG TAB PO SCH (08:28)
[2022-03-31] MEDS: HYDROcodone/Acetaminophen 10/325 mg Tablet PO PRN (08:29)
[2022-03-31] MEDS ORDERED: Polyethylene Glycol 3350 17 GM Packet PO SCH (09:00)
[2022-03-31] MEDS: Fluticasone/Salmeterol [Wixela 250-50 Inhub] INH SCH (10:05)
[2022-03-31] MEDS: TIOTROPIUM INH SCH (10:05)
[2022-03-31 11:50] VITALS: BP 95/58; TEMP 99.1
[2022-04-04 10:02] LABS: Actual Bicarbonate (HCO3a) 23.2 mEq/L (22-28); Analyzer IN Cardio OR; Base Excess (BEa) -1.5 mEq/L (-2.0 to +3.0); Calcium, Ionized (arterial) 1.33 mmol/L (1.12-1.30); Carboxyhemoglobin (COHb) 3.4 gm% (0.0-3.0); Hemoglobin (Hb) 11.7 g/dL (14.0-18.0); O2 Tension (PaO2), arterial 384.7 mmHg (> 70.0); Potassium - ABG Lab 3.92 mmol/L (3.70-5.30); pH, Arterial 7.39 (7.35-7.45)
[2022-04-04 10:02] LABS: Actual Bicarbonate (HCO3a) 23.3 mEq/L (22-28); Analyzer IN Cardio OR; Base Excess (BEa) -0.7 mEq/L (-2.0 to +3.0); CO2 Tension 36.1 mmHg (35.0-45.0); Calcium, Ionized (arterial) 1.09 mmol/L (1.12-1.30); Hemoglobin (Hb) 11.4 g/dL (14.0-18.0); O2 Tension (PaO2), arterial 578.1 mmHg (> 70.0); Potassium - ABG Lab 3.64 mmol/L (3.70-5.30); pH, Arterial 7.43 (7.35-7.45)
[2022-04-04 10:03] LABS: Analyzer IN Cardio OR; Base Excess (BEa) -0.6 mEq/L (-2.0 to +3.0); Carboxyhemoglobin (COHb) 2.5 gm% (0.0-3.0); Hemoglobin (Hb) 12.5 g/dL (14.0-18.0); O2 Tension (PaO2), arterial 591.8 mmHg (> 70.0); Potassium - ABG Lab 4.08 mmol/L (3.70-5.30); pH, Arterial 7.36 (7.35-7.45)
[2022-04-04 10:06] LABS: Puncture Site Arterial Line
[2022-04-04 10:06] LABS: Puncture Site Arterial Line
[2022-04-04 10:06] LABS: Puncture Site Arterial Line
== END 2022-03-31 14:45 | disposition home or self-care (01) | DRG 271 ==
LOC: SURG A 07:36 → EDSTATUS 14:23 → CCU 18:14 → SURG A 03-30 10:27
PROVIDERS: ADMIT Thoracic Surgery (Cardiothoracic Vascular Surgery); ATTEND Thoracic Surgery (Cardiothoracic Vascular Surgery)
PROC: 04PY0DZ Removal of Intraluminal Device from Lower Artery, Open Approach (ICD-10-PCS; principal; 2022-03-26)
PROC: 04100JK Bypass Abdominal Aorta to Bilateral Femoral Arteries with Synthetic Substitute, Open Approach (ICD-10-PCS; 2022-03-26)
DX: T82.328A Displacement of other vascular grafts, initial encounter (principal); C34.90 Malignant neoplasm of unspecified part of unspecified bronchus or lung; K56.7 Ileus, unspecified; I71.40 Abdominal aortic aneurysm, without rupture, unspecified; Y83.2 Surgical operation with anastomosis, bypass or graft as the cause of abnormal reaction of the patient, or of later complication, without mention of misadventure at the time of the procedure; Z20.822 Contact with and (suspected) exposure to COVID-19; I65.21 Occlusion and stenosis of right carotid artery; I25.10 Atherosclerotic heart disease of native coronary artery without angina pectoris; F32.A Depression, unspecified; E78.5 Hyperlipidemia, unspecified; E03.9 Hypothyroidism, unspecified; K21.9 Gastro-esophageal reflux disease without esophagitis; I73.9 Peripheral vascular disease, unspecified; I25.2 Old myocardial infarction; Z79.899 Other long term (current) drug therapy; Z79.82 Long term (current) use of aspirin; Z87.891 Personal history of nicotine dependence; Z95.1 Presence of aortocoronary bypass graft; Z85.820 Personal history of malignant melanoma of skin; Z79.02 Long term (current) use of antithrombotics/antiplatelets
CPT/HCPCS: 36415; 36416; 71045; 80048; 82805; 85025; 85027; 86850; 86900; 86901; 86922; 94640; C1776; C1889; J0360; J1265; J1642; J1644; J1956; J2150; J2250; J2405; J2550; J2704; J2720; J2765; J3010; J3490; J7050; J7620; P9047; S0017; U0002

== ENCOUNTER 2022-04-03 21:42 | Inpatient (IN) | payer MEDICARE ==
[2022-04-03] MEDS ORDERED: Piperacillin/Tazobactam 3.375 GM VIAL ONE (22:22)
[2022-04-03] MEDS ORDERED: Vancomycin 1 GM/200 ML (FROZEN) BAG ONE (22:22)
[2022-04-03 22:32] LABS: #Eosinphils 0.2 thou/uL (0.0-0.7); #Neutrophils 4.6 thou/uL (1.40-6.50); %Basophils 0.3 % (0.0-1.0); %Eosinophils 3.4 % (0.0-10.0); %Lymphocytes 14.8 % (21.0-51.0); %Monocytes 14.3 % (0.0-10.0); %Neutrophils 67.2 % (42.0-75.0); Hemoglobin 8.9 g/dL (14.0-18.0); Mean Corpuscular HGB CONC 34.7 g/dL (32.0-36.0); Mean Corpuscular Hemoglobin 33.8 pg (27.0-31.0); Mean Corpuscular Volume 97.2 fl (78.0-98.0); Mean Platelet Volume 7.8 fL (7.4-10.4); Platelet Count 311 10x3/uL (130-400); RBC Distribution Width 14.2 % (11.5-14.5); Red Blood Cell (RBC) Count 2.63 mill/uL (4.70-6.10); White Blood Cell (WBC) Count 6.8 10x3/uL (4.8-10.8)
[2022-04-03 22:54] LABS: PTT 39.2 sec (22.9-36.1); Prothrombin Time 13.7 sec (12.0-14.7)
[2022-04-03 22:55] LABS: ALT (SGPT) 9 U/L (8-55); AST (SGOT) 17 U/L (5-34); Albumin 2.4 g/dL (3.4-4.8); Alkaline Phosphatase 68 U/L (40-110); Anion Gap 10 mmol/L (10-20); BUN (Urea Nitrogen) 11 mg/dL (8.4-25.7); Bilirubin, Total 0.6 mg/dL (0.2-1.2); Calc. Creatinine Clearance 0 mL/min (70-130); Calcium 7.7 mg/dL (7.8-10.44); Carbon Dioxide 26 mmol/L (23-31); Chloride 107 mmol/L (98-107); Estimated GFR 92; Globulin 1.5 g/dL (2.4-3.5); Glucose 104 mg/dL (83-110); Potassium 3.9 mmol/L (3.5-5.1); Protein, Total 3.9 g/dL (5.8-8.1); Sodium 139 mmol/L (136-145)
[2022-04-03 23:10] LABS: Bilirubin Large (Negative); Blood, Urine Trace (Negative); Glucose, Urine (Dipstick) 100 mg/dL (Negative); Ketone, Urine 15 mg/dL (Negative); Leukocyte Negative (Negative); Nitrite Positive (Negative); Protein, Urine (Dipstick) 30 mg/dL (Neg-Trace)
[2022-04-03 23:39] LABS: Clarity Hazy (Clear)
[2022-04-03 23:44] LABS: Specific Gravity, Urine 1.022 (1.002-1.036); pH, Urine 6.5 (5.0-9.0)
[2022-04-04] MEDS ORDERED: NOREPINEPHRINE 8 MG/250 ML-D5W 250 ML ONE (00:11)
[2022-04-04 01:48] LABS: Bilirubin Negative (Negative); Blood, Urine Negative (Negative); Clarity Clear (Clear); Glucose, Urine (Dipstick) Normal (Negative); Ketone, Urine Negative (Negative); Leukocyte Negative Leu/uL (Negative); Nitrite Negative (Negative); Protein, Urine (Dipstick) Negative (Neg-Trace); Specific Gravity, Urine 1.025 (1.002-1.036); Urobilinogen Normal mg/dL (Less than 2); pH, Urine 5.5 (5.0-9.0)
[2022-04-04] MEDS ORDERED: Ondansetron PF 4 MG/2 ML Vial IVP PRN (03:47)
[2022-04-04] MEDS ORDERED: Ondansetron ODT 4 MG TAB PO PRN (03:47)
[2022-04-04] MEDS ORDERED: Acetaminophen 650 MG Suppository PR PRN (03:47)
[2022-04-04] MEDS ORDERED: Acetaminophen 325 MG TAB PO PRN (03:47)
[2022-04-04 04:32] VITALS: BMI 26.5
[2022-04-04] MEDS: Sodium Chloride 0.9% 1,000 ML IV SCH ×2 (05:40→20:08)
[2022-04-04] MEDS ORDERED: Piperacillin/Tazobactam 3.375 GM VIAL ONE ×2 (06:30→15:33)
[2022-04-04] MEDS: Piperacillin/Tazobactam 3.375 GM in Sodium Chloride 0.9% 100 ML IVPB SCH ×3 (06:32→21:16)
[2022-04-04 07:29] LABS: SARS-CoV-2 NAA Rapid Test DETECTED (NotDetected)
[2022-04-04 08:06] LABS: Hemoglobin 10.6 g/dL (14.0-18.0); Mean Corpuscular HGB CONC 32.9 g/dL (32.0-36.0); Mean Corpuscular Hemoglobin 32.7 pg (27.0-31.0); Mean Corpuscular Volume 99.4 fl (78.0-98.0); Mean Platelet Volume 7.8 fL (7.4-10.4); Platelet Count 318 10x3/uL (130-400); RBC Distribution Width 14.2 % (11.5-14.5); Red Blood Cell (RBC) Count 3.24 mill/uL (4.70-6.10); White Blood Cell (WBC) Count 6.7 10x3/uL (4.8-10.8)
[2022-04-04 08:21] LABS: Anion Gap 13 mmol/L (10-20); BUN (Urea Nitrogen) 9 mg/dL (8.4-25.7); Calc. Creatinine Clearance 103 mL/min (70-130); Calcium 7.7 mg/dL (7.8-10.44); Carbon Dioxide 20 mmol/L (23-31); Chloride 108 mmol/L (98-107); Estimated GFR 95; Glucose 83 mg/dL (83-110); Potassium 3.6 mmol/L (3.5-5.1); Sodium 137 mmol/L (136-145)
[2022-04-04 08:47] LABS: Band 13 % (5-11); Eosinophils 1 % (0-10); Lymphocytes 21 % (21-51); MDiff Complete? YES; Metamyelocyte 2 % (0-0); Monocytes 13 % (0-10); Myelocyte 2 % (0-0); Neutrophil 47 % (42-75); Ovalocytes SLIGHT = 2-5 cells (100X) (0-1/hpf); Platelet Morphology Comment Appears Adequate; Polychromasia MODERATE = 3-4 cells (100X) (0-2/hpf)
[2022-04-04] MEDS: VANCOMYCIN 1.25 GM/250 ML BAG 1.25 GM in Premix Bag 1 BAG IVPB SCH ×2 (10:38→21:16)
[2022-04-04] MEDS ORDERED: HYDROcodone/Acetaminophen 10/325 mg Tablet PO PRN (12:08)
[2022-04-04] MEDS ORDERED: Melatonin 3 MG TAB PO PRN (20:17)
[2022-04-04] MEDS: Famotidine 20 MG TAB PO SCH (21:16)
[2022-04-04] MEDS: Carvedilol 25 MG TAB PO SCH (21:16)
[2022-04-04] MEDS: Heparin 5,000 UNITS/ML VIAL SC SCH (21:17)
[2022-04-05] MEDS ORDERED: Ondansetron PF 4 MG/2 ML Vial IVP SCH (01:45)
[2022-04-05] MEDS ORDERED: Promethazine HCl 12.5 MG in Sodium Chloride 0.9% 50 ML IVPB SCH (03:45)
[2022-04-05 04:29] LABS: #Eosinphils 0.1 thou/uL (0.0-0.7); #Lymphocytes 1.1 thou/uL (1.20-3.40); #Monocytes 0.7 thou/uL (0.11-0.59); #Neutrophils 3.9 thou/uL (1.40-6.50); %Basophils 0.6 % (0.0-1.0); %Eosinophils 1.3 % (0.0-10.0); %Lymphocytes 18.9 % (21.0-51.0); %Monocytes 12.6 % (0.0-10.0); %Neutrophils 66.6 % (42.0-75.0); Hemoglobin 9.9 g/dL (14.0-18.0); Mean Corpuscular HGB CONC 33.6 g/dL (32.0-36.0); Mean Corpuscular Hemoglobin 33.1 pg (27.0-31.0); Mean Corpuscular Volume 98.7 fl (78.0-98.0); Mean Platelet Volume 8.1 fL (7.4-10.4); Platelet Count 333 10x3/uL (130-400); RBC Distribution Width 14.1 % (11.5-14.5); Red Blood Cell (RBC) Count 2.99 mill/uL (4.70-6.10); White Blood Cell (WBC) Count 5.9 10x3/uL (4.8-10.8)
[2022-04-05 04:51] LABS: Anion Gap 13 mmol/L (10-20); BUN (Urea Nitrogen) 8 mg/dL (8.4-25.7); Calc. Creatinine Clearance 110 mL/min (70-130); Calcium 7.7 mg/dL (7.8-10.44); Carbon Dioxide 21 mmol/L (23-31); Chloride 105 mmol/L (98-107); Estimated GFR 96; Glucose 96 mg/dL (83-110); Potassium 3.3 mmol/L (3.5-5.1); Sodium 136 mmol/L (136-145)
[2022-04-05] MEDS: Piperacillin/Tazobactam 3.375 GM in Sodium Chloride 0.9% 100 ML IVPB SCH ×2 (05:32→14:46)
[2022-04-05 08:20] LABS: Vancomycin, Trough 10.4 ug/mL
[2022-04-05] MEDS ORDERED: Vancomycin 1.5 GRAM/300 ML BAG 1.5 GM in Premix Bag 1 BAG IVPB SCH (09:00)
[2022-04-05] MEDS: Heparin 5,000 UNITS/ML VIAL SC SCH ×2 (09:59→21:03)
[2022-04-05] MEDS: Famotidine 20 MG TAB PO SCH ×2 (09:59→21:02)
[2022-04-05] MEDS ORDERED: Potassium Chloride 20 MEQ TAB PO SCH (10:00)
[2022-04-05] MEDS ORDERED: Temazepam 15 MG CAP PO SCH (20:15)
[2022-04-05] MEDS: Carvedilol 25 MG TAB PO SCH (21:02)
[2022-04-06 04:46] LABS: #Eosinphils 0.1 thou/uL (0.0-0.7); #Lymphocytes 1.2 thou/uL (1.20-3.40); #Monocytes 0.5 thou/uL (0.11-0.59); #Neutrophils 2.9 thou/uL (1.40-6.50); %Basophils 0.2 % (0.0-1.0); %Lymphocytes 25.7 % (21.0-51.0); Hemoglobin 8.7 g/dL (14.0-18.0); Mean Corpuscular HGB CONC 34.3 g/dL (32.0-36.0); Mean Corpuscular Hemoglobin 33.4 pg (27.0-31.0); Mean Corpuscular Volume 97.6 fl (78.0-98.0); Mean Platelet Volume 7.5 fL (7.4-10.4); Platelet Count 328 10x3/uL (130-400); RBC Distribution Width 13.9 % (11.5-14.5); Red Blood Cell (RBC) Count 2.59 mill/uL (4.70-6.10); White Blood Cell (WBC) Count 4.8 10x3/uL (4.8-10.8)
[2022-04-06 05:05] LABS: ALT (SGPT) 11 U/L (8-55); AST (SGOT) 14 U/L (5-34); Albumin 2.2 g/dL (3.4-4.8); Alkaline Phosphatase 56 U/L (40-110); Anion Gap 11 mmol/L (10-20); BUN (Urea Nitrogen) 7 mg/dL (8.4-25.7); Bilirubin, Total 0.7 mg/dL (0.2-1.2); Calc. Creatinine Clearance 105 mL/min (70-130); Calcium 7.6 mg/dL (7.8-10.44); Carbon Dioxide 24 mmol/L (23-31); Chloride 104 mmol/L (98-107); Estimated GFR 95; Globulin 2.2 g/dL (2.4-3.5); Glucose 88 mg/dL (83-110); Magnesium 1.6 mg/dL (1.6-2.6); Potassium 3.5 mmol/L (3.5-5.1); Protein, Total 4.4 g/dL (5.8-8.1); Sodium 135 mmol/L (136-145)
[2022-04-06] MEDS: Heparin 5,000 UNITS/ML VIAL SC SCH (10:19)
[2022-04-06] MEDS: Famotidine 20 MG TAB PO SCH (10:19)
[2022-04-06 12:17] VITALS: BP 151/68; TEMP 98.7
== END 2022-04-06 13:30 | disposition left against medical advice (07) | DRG 871 ==
LOC: ERS 21:42 → ERHOLD 04-04 02:54 → 2NO 04-04 19:40
PROVIDERS: ADMIT Student in an Organized Health Care Education/Training Program; ATTEND Internal Medicine
PROC: 3E033XZ Introduction of Vasopressor into Peripheral Vein, Percutaneous Approach (ICD-10-PCS; principal; 2022-04-04)
PROC: 3E03329 Introduction of Other Anti-infective into Peripheral Vein, Percutaneous Approach (ICD-10-PCS; 2022-04-04)
DX: A41.9 Sepsis, unspecified organism (principal); J18.9 Pneumonia, unspecified organism; U07.1 COVID-19; C34.90 Malignant neoplasm of unspecified part of unspecified bronchus or lung; L03.115 Cellulitis of right lower limb; N39.0 Urinary tract infection, site not specified; Z20.822 Contact with and (suspected) exposure to COVID-19; L89.151 Pressure ulcer of sacral region, stage 1; I25.10 Atherosclerotic heart disease of native coronary artery without angina pectoris; F43.10 Post-traumatic stress disorder, unspecified; Z95.5 Presence of coronary angioplasty implant and graft; Z79.82 Long term (current) use of aspirin; Z79.899 Other long term (current) drug therapy; Z95.1 Presence of aortocoronary bypass graft; Z53.29 Procedure and treatment not carried out because of patient's decision for other reasons
CPT/HCPCS: 36415; 71045; 74177; 80048; 80053; 80202; 81003; 81015; 83605; 83735; 83880; 84145; 84484; 85025; 85610; 85730; 86140; 86850; 86900; 86901; 86922; 87040; 93306; 97139; J1611; J1644; J2405; J2543; J2550; J3370; J3370-JW; J3490; J7050; U0002

== ENCOUNTER 2022-08-29 13:48 | Outpatient (CLI) | payer MEDICARE ==
[2022-08-29] MEDS ORDERED: Iopamidol 370 76% 100 ML VIAL ONE (15:39)
== END 2022-08-29 13:49 | disposition home or self-care (01) ==
LOC: CT 13:48
PROVIDERS: ATTEND Thoracic Surgery (Cardiothoracic Vascular Surgery)
DX: I71.40 Abdominal aortic aneurysm, without rupture, unspecified (principal); I77.4 Celiac artery compression syndrome; I70.1 Atherosclerosis of renal artery; K55.1 Chronic vascular disorders of intestine
CPT/HCPCS: 75635; 82565; Q9967

== ENCOUNTER 2023-12-29 12:57 | Outpatient (CLI) | payer OTHER, MEDICARE ==
[~2023-12-29 12:57] MED LIST changes: +Iopamidol 370 76% 100 ML VIAL ONE; -Iopamidol 370 76% 50 ML VIAL FS ONE
== END 2023-12-29 12:58 | disposition home or self-care (01) ==
LOC: BICCT 12:57
PROVIDERS: ATTEND Family Medicine
DX: R91.1 Solitary pulmonary nodule (principal); J98.4 Other disorders of lung
CPT/HCPCS: 71260; Q9967

== ENCOUNTER 2024-01-02 10:03 | Outpatient (CLI) | payer OTHER, MEDICARE | END 2024-01-02 10:04 | disposition home or self-care (01) | LOC: ULT 10:03 | PROVIDERS: ATTEND Family Medicine | DX: R10.11 Right upper quadrant pain (principal); I70.1 Atherosclerosis of renal artery; N20.0 Calculus of kidney; N28.1 Cyst of kidney, acquired; K82.8 Other specified diseases of gallbladder | CPT/HCPCS: 76705; 76770 ==

== ENCOUNTER 2024-02-24 14:32 | Outpatient (CLI) | payer OTHER, MEDICARE | END 2024-02-24 14:33 | disposition home or self-care (01) | LOC: BICRAD 14:32 | PROVIDERS: ATTEND Family Medicine | DX: J44.9 Chronic obstructive pulmonary disease, unspecified (principal) | CPT/HCPCS: 71046 ==